=== PATIENT | male | born 1925 | race Caucasian/White ===

== ENCOUNTER 2016-06-06 14:03 | Inpatient (IN) | payer MEDICAID, MEDICARE ==
[~2016-06-06] VITALS: Ht 167.6 cm; Wt 88.7 kg
[~2016-06-06 14:03] MED LIST: ASPIRIN ADULT L81 M3 PO; FER300 PO; IMD60 PO; LASIX20 MG PO; LIPI20 PO; LOP50 PO; TOPROL XL50 MG PO; V5 PO; VITAMIN C500 M4 PO; XARELTO10 M1 PO; [UNRECOGNIZED DRUG - OTHER] PO
[2016-06-06 16:21] LABS: BASOPHIL % 0.3 % (0-2); PLATELET COUNT 328 x10^3mcL (130-400)
[2016-06-06 16:25] LABS: RED CELL DISTRIBUTION WIDTH 17.1 % (11.5-14.5)
[2016-06-06 16:37] LABS: CALCIUM 7.9 mg/dL (8.5-10.1); CHLORIDE SERUM 105 mmol/L (98-107); CREATININE SERUM 1.8 mg/dL (0.7-1.3); GLUCOSE SERUM 103 mg/dL (74-106); POTASSIUM SERUM 4.8 mmol/L (3.5-5.1); SODIUM SERUM 141 mmol/L (136-145)
[2016-06-06 16:42] LABS: ALKALINE PHOSPHATASE 89 U/L (46-116); ALT/SGPT 27 U/L (16-63); AST/SGOT 24 U/L (15-37); BILIRUBIN TOTAL 0.55 mg/dL (0.20-1.00); TOTAL PROTEIN, SERUM 6.4 g/dL (6.4-8.2)
[2016-06-06 16:48] LABS: ALBUMIN 2.9 g/dL (3.4-5.0)
[2016-06-06 18:35] LABS: T3 TOTAL 0.78 ng/mL
[2016-06-06 18:41] LABS: FREE T4 1.02 ng/dL (0.76-1.46); FREE THYROXINE INDEX 1.9 ug/dL (1.4-4.5); MAGNESIUM 2.1 mg/dL (1.8-2.4); PHOSPHOROUS 3.4 mg/dL (2.5-4.9); T4(THYROXINE) 5.9 ug/dL (4.7-13.3)
[2016-06-06 18:50] LABS: CHOLESTEROL/HDL RATIO 2.5
[2016-06-06 19:11] VITALS: BP 106/59
[2016-06-06 20:52] LABS: PLATELET COUNT 269 x10^3mcL (130-400)
[2016-06-06 21:01] LABS: BASOPHIL % 0 % (0-2); RED CELL DISTRIBUTION WIDTH 17.2 % (11.5-14.5)
[2016-06-06 21:04] LABS: IRON 25 ug/dL (65-170); TOTAL IRON BINDING CAPACITY 332 ug/dL (250-450)
[2016-06-06 21:11] LABS: RED BLOOD CELLS 2.79 M/mm3 (4.52-5.90)
[2016-06-06 22:09] VITALS: BP 117/60
[2016-06-07] VITALS (7 sets, daily range): BP systolic 100–161; BP diastolic 28–69
[2016-06-07 05:49] LABS: CALCIUM 7.7 mg/dL (8.5-10.1); CARBON DIOXIDE 24.8 mmol/L (21-32); CHLORIDE SERUM 112 mmol/L (98-107); CREATININE SERUM 1.7 mg/dL (0.7-1.3); GLUCOSE SERUM 114 mg/dL (74-106); MAGNESIUM 2.2 mg/dL (1.8-2.4); PHOSPHOROUS 3.2 mg/dL (2.5-4.9); POTASSIUM SERUM 4.6 mmol/L (3.5-5.1); SODIUM SERUM 145 mmol/L (136-145)
[2016-06-07 05:52] LABS: BASOPHIL % 0.2 % (0-2); PLATELET COUNT 244 x10^3mcL (130-400)
[2016-06-07 05:53] LABS: RED CELL DISTRIBUTION WIDTH 17.4 % (11.5-14.5)
[2016-06-07 05:55] LABS: rbc morphology (normal/abnorm) ABNORMAL (NORMAL)
[2016-06-07 07:37] LABS: microscopic required? YES; urine erythrocyte NEGATIVE (NEGATIVE)
[2016-06-07 07:42] LABS: AMPHETAMINE QUAL UR NONE DETECTED (NEG <=1000)
[2016-06-07 16:50] LABS: rbc morphology (normal/abnorm) ABNORMAL (NORMAL)
[2016-06-08 02:05] LABS: BASOPHIL % 0.1 % (0-2); PLATELET COUNT 265 x10^3mcL (130-400)
[2016-06-08 02:06] LABS: RED CELL DISTRIBUTION WIDTH 17.9 % (11.5-14.5)
[2016-06-08 06:02] VITALS: BP 155/70
[2016-06-08 06:46] LABS: CALCIUM 7.8 mg/dL (8.5-10.1); CARBON DIOXIDE 23.3 mmol/L (21-32); CHLORIDE SERUM 113 mmol/L (98-107); CREATININE SERUM 2.3 mg/dL (0.7-1.3); GLUCOSE SERUM 134 mg/dL (74-106); MAGNESIUM 2.2 mg/dL (1.8-2.4); PHOSPHOROUS 4.9 mg/dL (2.5-4.9); SODIUM SERUM 149 mmol/L (136-145)
[2016-06-08 07:40] LABS: BASOPHIL % 0.2 % (0-2); PLATELET COUNT 247 x10^3mcL (130-400)
[2016-06-08 07:42] LABS: RED CELL DISTRIBUTION WIDTH 17.8 % (11.5-14.5)
[2016-06-08 07:47] VITALS: BP 140/40
[2016-06-08 10:00] VITALS: BP 155/51
[2016-06-08 14:00] VITALS: BP 119/43
[2016-06-08 18:31] VITALS: BP 126/55
[2016-06-09 05:49] VITALS: BP 107/52
[2016-06-09 07:01] LABS: CALCIUM 7.6 mg/dL (8.5-10.1); CHLORIDE SERUM 112 mmol/L (98-107); CREATININE SERUM 1.9 mg/dL (0.7-1.3); GLUCOSE SERUM 98 mg/dL (74-106); MAGNESIUM 2.1 mg/dL (1.8-2.4); PHOSPHOROUS 3.7 mg/dL (2.5-4.9); POTASSIUM SERUM 3.9 mmol/L (3.5-5.1); SODIUM SERUM 146 mmol/L (136-145)
[2016-06-09 07:33] LABS: BASOPHIL % 0.2 % (0-2)
[2016-06-09 08:29] LABS: PLATELET COUNT 209 x10^3mcL (130-400)
[2016-06-09 08:42] LABS: RED CELL DISTRIBUTION WIDTH 17.6 % (11.5-14.5)
[2016-06-09 09:30] VITALS: BP 130/49
[2016-06-09 10:51] LABS: rbc morphology (normal/abnorm) ABNORMAL (NORMAL)
[2016-06-09 14:36] LABS: BASOPHIL % 0.3 % (0-2); PLATELET COUNT 228 x10^3mcL (130-400)
[2016-06-09 14:49] LABS: rbc morphology (normal/abnorm) ABNORMAL (NORMAL)
[2016-06-09 14:54] VITALS: BP 127/50
[2016-06-09 17:05] VITALS: BP 137/51
[2016-06-09 21:20] VITALS: BP 118/44
[2016-06-09 22:29] VITALS: BP 116/44
[2016-06-10] VITALS (9 sets, daily range): BP systolic 108–143; BP diastolic 44–80
[2016-06-10 07:31] LABS: BASOPHIL % 0.3 % (0-2); PLATELET COUNT 197 x10^3mcL (130-400)
[2016-06-10 07:34] LABS: RED CELL DISTRIBUTION WIDTH 16.5 % (11.5-14.5)
[2016-06-10 07:50] LABS: CALCIUM 7.3 mg/dL (8.5-10.1); CARBON DIOXIDE 24.4 mmol/L (21-32); CHLORIDE SERUM 112 mmol/L (98-107); CREATININE SERUM 1.6 mg/dL (0.7-1.3); GLUCOSE SERUM 89 mg/dL (74-106); MAGNESIUM 2.3 mg/dL (1.8-2.4); PHOSPHOROUS 3.3 mg/dL (2.5-4.9); POTASSIUM SERUM 3.7 mmol/L (3.5-5.1); SODIUM SERUM 144 mmol/L (136-145)
[2016-06-10 09:17] LABS: BASOPHIL % 0.2 % (0-2); PLATELET COUNT 208 x10^3mcL (130-400)
[2016-06-10 09:22] LABS: RED CELL DISTRIBUTION WIDTH 16.5 % (11.5-14.5)
== END 2016-06-10 19:30 | disposition home or self-care (01) | DRG 254 ==
LOC: ED 14:03 → DU 17:00
PROVIDERS: Family Medicine; Internal Medicine Gastroenterology; Specialist; ADMIT Family Medicine
PROC: 30233N1 Transfusion of Nonautologous Red Blood Cells into Peripheral Vein, Percutaneous Approach (ICD-10-PCS; 2016-06-07)
PROC: 0DB68ZX Excision of Stomach, Via Natural or Artificial Opening Endoscopic, Diagnostic (ICD-10-PCS; principal; 2016-06-07 13:30)
PROC: 0DBK8ZZ Excision of Ascending Colon, Via Natural or Artificial Opening Endoscopic (ICD-10-PCS; 2016-06-08)
PROC: 0D568ZZ Destruction of Stomach, Via Natural or Artificial Opening Endoscopic (ICD-10-PCS; 2016-06-10)
DX: K64.8 Other hemorrhoids (principal); E43 Unspecified severe protein-calorie malnutrition; I42.9 Cardiomyopathy, unspecified; K31.811 Angiodysplasia of stomach and duodenum with bleeding; D62 Acute posthemorrhagic anemia; I13.10 Hypertensive heart and chronic kidney disease without heart failure, with stage 1 through stage 4 chronic kidney disease, or unspecified chronic kidney disease; N13.39 Other hydronephrosis; N39.0 Urinary tract infection, site not specified; D12.2 Benign neoplasm of ascending colon; N18.9 Chronic kidney disease, unspecified; E78.5 Hyperlipidemia, unspecified; Z92.3 Personal history of irradiation; Z95.0 Presence of cardiac pacemaker; Z79.82 Long term (current) use of aspirin; Z68.31 Body mass index [BMI] 31.0-31.9, adult; Z87.891 Personal history of nicotine dependence; Z79.01 Long term (current) use of anticoagulants; Z85.46 Personal history of malignant neoplasm of prostate; N40.0 Benign prostatic hyperplasia without lower urinary tract symptoms; N28.1 Cyst of kidney, acquired
CPT/HCPCS: 43235; 45378; 80307; 83880; 84439; 97110-GP; 97116-GP; 97530-GP; C9113; G0480; J0171; J0696; J1200; J1610; J1940; J2250; J2310; J2405; J2765; J3010; J3490; J7030; J7040; J7050; P9016; Q0092; Q0163